=== PATIENT | female | born 1990 | race Caucasian/White ===

== ENCOUNTER → 2019-05-28 | Outpatient (REF) | payer OTHER ==
[2019-05-28 17:58] LABS: APPEARANCE, URINE CLEAR (CLEAR); BACTERIA, URINE AUTO NEGATIVE (NEGATIVE); BILIRUBIN, URINE AUTO NEGATIVE (NEGATIVE); BLOOD, URINE BLOOD NEGATIVE (NEGATIVE); COLOR, URINE YELLOW (YELLOW); GLUCOSE, URINE (UA) AUTO NEGATIVE (NEGATIVE); KETONE, URINE AUTO NEGATIVE (NEGATIVE); LEUKOCYTE ESTERASE, URINE AUTO NEGATIVE (NEGATIVE); NITRITE, URINE AUTO NEGATIVE (NEGATIVE); PROTEIN, URINE AUTO NEGATIVE (NEGATIVE); RBC, URINE AUTO 3 /HPF (0-3); SPECIFIC GRAVITY URINE AUTO 1.013 (1.002-1.035); SQUAMOUS EPITHELIAL CELL UR AU 0 /HPF (0-6); UROBILINOGEN, URINE AUTO 0.2 mg/dL (0.0-2.0); WBC, URINE AUTO 2 /HPF (0-3)
[2019-05-28 19:28] LABS: CHLAMYDIA DNA AMPLIFICATION NEGATIVE (NEGATIVE); GC DNA AMPLIFICATION NEGATIVE (NEGATIVE)
== END ==
LOC: M LAB REF 05-25 15:32
PROVIDERS: ATTEND Physician Assistant Medical
DX: Z11.3 Encounter for screening for infections with a predominantly sexual mode of transmission (principal); Z20.9 Contact with and (suspected) exposure to unspecified communicable disease

== ENCOUNTER 2019-07-28 02:02 | Emergency (ER) | payer OTHER ==
[~2019-07-28] VITALS: Ht 157.5 cm; Wt 57.7 kg
[2019-07-28 02:34] VITALS: BP 114/72
[2019-07-28] MEDS ORDERED: ATOR1TAB21 PO (02:38)
[2019-07-28] MEDS ORDERED: ABIL20TA5 PO (02:38)
[2019-07-28] MEDS ORDERED: SUBO8MIS SL (02:38)
[2019-07-28] MEDS ORDERED: ZOLO100T PO (02:38)
[2019-07-28] MEDS ORDERED: XANA2TAB2 PO (02:39)
[2019-07-28] MEDS ORDERED: LISI-538 PO (02:39)
== END 2019-07-28 03:20 | disposition home or self-care (01) ==
LOC: M ED 02:02
DX: F43.0 Acute stress reaction (principal); I10 Essential (primary) hypertension; F31.9 Bipolar disorder, unspecified; F17.200 Nicotine dependence, unspecified, uncomplicated; Z79.899 Other long term (current) drug therapy

== ENCOUNTER 2020-01-07 10:33 | Emergency (ER) | payer MEDICAID, OTHER ==
[~2020-01-07] VITALS: Ht 157.5 cm; Wt 60.2 kg
[2020-01-07 10:33] VITALS: BP 135/86
[~2020-01-07 10:33] MED LIST: ABIL20TA5 PO; ATOR1TAB21 PO; LISI-538 PO; SUBO8MIS SL; XANA2TAB2 PO; ZOLO100T PO
[2020-01-07 12:20] LABS: HEMATOCRIT 40.8 % (36.0-47.0); HEMOGLOBIN 13.6 g/dl (12.0-15.5); MEAN CORPUSCULAR HEMOGLOBIN 29.7 pg (27.0-33.0); MEAN CORPUSCULAR HGB CONC 33.3 g/dl (32.0-36.5); MEAN CORPUSCULAR VOLUME 89.1 fl (80.0-96.0); PLATELET COUNT, AUTOMATED 306 10^3/uL (150-450); RED BLOOD COUNT 4.58 10^6/uL (4.00-5.40); WHITE BLOOD COUNT 9.7 10^3/uL (4.0-10.0)
[2020-01-07] MEDS ORDERED: ALPRAZolam 0.5 MG TAB PO ONE (12:30)
[2020-01-07 12:42] LABS: HCG, SERUM QUALITATIVE NEGATIVE (NEGATIVE)
[2020-01-07 12:54] LABS: AMPHETAMINES LEVEL URINE NEGATIVE (NEGATIVE); BARBITURATES URINE NEGATIVE (NEGATIVE); BENZODIAZEPINES URINE NEGATIVE (NEGATIVE); CANNABINOIDS URINE NEGATIVE (NEGATIVE); COCAINE METABOLITE URINE NEGATIVE (NEGATIVE); METHADONE URINE NEGATIVE (NEGATIVE); OPIATES URINE NEGATIVE (NEGATIVE); PHENCYCLIDINE URINE NEGATIVE (NEGATIVE)
[2020-01-07 12:55] LABS: ACETAMINOPHEN LEVEL < 2.0 UG/ML (10.0-30.0); ALBUMIN 4.1 GM/DL (3.2-5.2); ALT/SGPT 17 U/L (12-78); BILIRUBIN,DIRECT 0.1 MG/DL (0.0-0.2); BILIRUBIN,TOTAL 0.2 MG/DL (0.2-1.0); BLOOD UREA NITROGEN 6 MG/DL (7-18); CARBON DIOXIDE LEVEL 25 MEQ/L (21-32); CHLORIDE LEVEL 107 MEQ/L (98-107); CREATININE FOR GFR 0.72 MG/DL (0.55-1.30); ETHYL ALCOHOL (ETHANOL) 0.004 % (0.000-0.010); GLOMERULAR FILTRATION RATE > 60.0 (>60); GLUCOSE, FASTING 95 MG/DL (70-100); POTASSIUM SERUM 4.4 MEQ/L (3.5-5.1); SALICYLATE LEVEL 3.9 MG/DL (5.0-30.0); SODIUM LEVEL 140 MEQ/L (136-145); THYROID STIMULATING HORMONE 0.296 uIU/ML (0.358-3.740); TOTAL PROTEIN 7.9 GM/DL (6.4-8.2)
== END 2020-01-07 13:35 | disposition left against medical advice (07) ==
LOC: M ED 10:33
DX: F32.9 Major depressive disorder, single episode, unspecified (principal); Z53.21 Procedure and treatment not carried out due to patient leaving prior to being seen by health care provider; F41.9 Anxiety disorder, unspecified; I10 Essential (primary) hypertension; F17.200 Nicotine dependence, unspecified, uncomplicated; Z79.899 Other long term (current) drug therapy
CPT/HCPCS: 36415; 80048; 80076; 80307; 84443; 84703; 85027; 99284; G0480

== ENCOUNTER 2020-10-23 12:16 | Emergency (ER) | payer MEDICAID, OTHER ==
[~2020-10-23] VITALS: Ht 157.5 cm; Wt 52.3 kg
[~2020-10-23 12:16] MED LIST changes: -LISI-538 PO; +LISI20TA33 PO
[2020-10-23] MEDS ORDERED: OLANZapine ORAL DISINTEGRATING TAB 5MG PO ONE (13:10)
[2020-10-23] MEDS ORDERED: LORazepam 2 MG TAB PO ONE (13:10)
[2020-10-23 14:06] LABS: HEMATOCRIT 45.3 % (36.0-47.0); HEMOGLOBIN 15.8 g/dl (12.0-15.5); MEAN CORPUSCULAR HEMOGLOBIN 29.8 pg (27.0-33.0); MEAN CORPUSCULAR HGB CONC 34.9 g/dl (32.0-36.5); MEAN CORPUSCULAR VOLUME 85.3 fl (80.0-96.0); PLATELET COUNT, AUTOMATED 302 10^3/uL (150-450); RED BLOOD COUNT 5.31 10^6/uL (4.00-5.40); WHITE BLOOD COUNT 10.5 10^3/uL (4.0-10.0)
[2020-10-23 14:33] LABS: HCG, SERUM QUALITATIVE NEGATIVE (NEGATIVE)
[2020-10-23 14:38] LABS: ACETAMINOPHEN LEVEL < 2.0 UG/ML (10.0-30.0); ALT/SGPT 39 U/L (12-78); BILIRUBIN,DIRECT 0.1 MG/DL (0.0-0.2); BILIRUBIN,TOTAL 0.5 MG/DL (0.2-1.0); BLOOD UREA NITROGEN 12 MG/DL (7-18); CALCIUM LEVEL 9.7 MG/DL (8.5-10.1); CARBON DIOXIDE LEVEL 23 MEQ/L (21-32); CHLORIDE LEVEL 104 MEQ/L (98-107); CK-MB VALUE MASS 1.2 NG/ML (<3.6); CPK CREATINE PHOSPHOKINASE 76 U/L (26-192); CREATININE FOR GFR 0.79 MG/DL (0.55-1.30); ETHYL ALCOHOL (ETHANOL) < 0.003 % (0.000-0.010); GLOMERULAR FILTRATION RATE > 60.0 (>60); GLUCOSE, FASTING 104 MG/DL (70-100); MB/CK RELATIVE INDEX 1.58 (< OR =4); POTASSIUM SERUM 4.4 MEQ/L (3.5-5.1); SALICYLATE LEVEL 3.3 MG/DL (5.0-30.0); SODIUM LEVEL 135 MEQ/L (136-145); THYROID STIMULATING HORMONE 0.569 uIU/ML (0.358-3.740); TOTAL PROTEIN 8.5 GM/DL (6.4-8.2); TROPONIN I < 0.02 NG/ML (< 0.10)
[2020-10-23 15:30] VITALS: BP 163/109
--- NOTE | 2020-10-23 20:17 | ECGEPIP ---
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
== END 2020-10-23 17:08 | disposition left against medical advice (07) ==
LOC: M ED 12:16 → EDBD 12:16 → M ED 17:08
DX: R44.3 Hallucinations, unspecified (principal); Z53.9 Procedure and treatment not carried out, unspecified reason; R00.0 Tachycardia, unspecified; I10 Essential (primary) hypertension; E78.5 Hyperlipidemia, unspecified; F32.9 Major depressive disorder, single episode, unspecified; F41.9 Anxiety disorder, unspecified; F17.200 Nicotine dependence, unspecified, uncomplicated; Z79.899 Other long term (current) drug therapy

== ENCOUNTER 2020-11-22 09:36 | Inpatient (IN) | payer MEDICAID, OTHER ==
[~2020-11-22] VITALS: Ht 157.5 cm; Wt 55.0 kg
[2020-11-22] MEDS ORDERED: BOOSTRIX/ADACEL VACCINE (DIPHTH/PERTUSS/ACELL/TETANUS) 0.5ML SYR IM ONE (09:55)
[2020-11-22 10:35] LABS: HEMATOCRIT 35.4 % (36.0-47.0); HEMOGLOBIN 12.4 g/dl (12.0-15.5); MEAN CORPUSCULAR HEMOGLOBIN 29.6 pg (27.0-33.0); MEAN CORPUSCULAR VOLUME 84.5 fl (80.0-96.0); PLATELET COUNT, AUTOMATED 249 10^3/uL (150-450); RED BLOOD COUNT 4.19 10^6/uL (4.00-5.40); WHITE BLOOD COUNT 10.2 10^3/uL (4.0-10.0)
[2020-11-22 10:57] LABS: AMPHETAMINES LEVEL URINE POSITIVE (NEGATIVE); BARBITURATES URINE NEGATIVE (NEGATIVE); BENZODIAZEPINES URINE POSITIVE (NEGATIVE); CANNABINOIDS URINE NEGATIVE (NEGATIVE); COCAINE METABOLITE URINE NEGATIVE (NEGATIVE); METHADONE URINE NEGATIVE (NEGATIVE); OPIATES URINE POSITIVE (NEGATIVE); PHENCYCLIDINE URINE NEGATIVE (NEGATIVE)
[2020-11-22 11:03] LABS: HCG, SERUM QUALITATIVE NEGATIVE (NEGATIVE)
[2020-11-22 11:13] LABS: ACETAMINOPHEN LEVEL < 2.0 UG/ML (10.0-30.0); ALBUMIN 3.5 GM/DL (3.2-5.2); ALT/SGPT 21 U/L (12-78); BILIRUBIN,DIRECT < 0.1 MG/DL (0.0-0.2); BILIRUBIN,TOTAL 0.3 MG/DL (0.2-1.0); BLOOD UREA NITROGEN 11 MG/DL (7-18); CALCIUM LEVEL 8.8 MG/DL (8.5-10.1); CARBON DIOXIDE LEVEL 26 MEQ/L (21-32); CHLORIDE LEVEL 105 MEQ/L (98-107); CREATININE FOR GFR 0.78 MG/DL (0.55-1.30); ETHYL ALCOHOL (ETHANOL) < 0.003 % (0.000-0.010); GLOMERULAR FILTRATION RATE > 60.0 (>60); GLUCOSE, FASTING 87 MG/DL (70-100); POTASSIUM SERUM 3.3 MEQ/L (3.5-5.1); SALICYLATE LEVEL 2.4 MG/DL (5.0-30.0); SODIUM LEVEL 138 MEQ/L (136-145); TOTAL PROTEIN 7.1 GM/DL (6.4-8.2)
[2020-11-22 12:02] LABS: RSV AMPLIFICATION NEGATIVE (NEGATIVE)
[2020-11-22] MEDS ORDERED: SERT50TA29 PO (12:09)
[2020-11-22] MEDS ORDERED: MOM 30ML SUSPENSION UDC PO PRN (13:15)
[2020-11-22] MEDS ORDERED: ACETAMINOPHEN TAB 650MG DOSE (2X325MG) PO PRN (13:15)
[2020-11-22] MEDS ORDERED: MAALOX 30 ML SUSP *UDC PO PRN (13:15)
[2020-11-22] MEDS ORDERED: ALPR2TAB3 PO (14:14)
[2020-11-22] MEDS ORDERED: cloNIDine 0.1MG TABLET PO ONE (14:40)
[2020-11-22 17:45] VITALS: BP 134/81
[2020-11-22] MEDS: ALPRAZolam 0.5 MG TAB PO PRN (20:33)
[2020-11-22] MEDS: SERTRALINE HCL 50 MG TAB PO SCH (20:46)
[2020-11-22] MEDS: NICOTINE 21MG/24HR 1 EA TRANSDERMAL TD SCH (20:46)
[2020-11-22] MEDS: ATORVASTATIN 20 MG TAB PO SCH (20:46)
[2020-11-22] MEDS: ARIPiprazole 10 MG TAB PO SCH (20:46)
[2020-11-23 06:09] VITALS: BP 92/55
[2020-11-23] MEDS ORDERED: SERTRALINE 100 MG TAB PO SCH (09:00)
[2020-11-23] MEDS: cloNIDine 0.1MG TABLET PO SCH ×2 (09:00→20:43)
[2020-11-23] MEDS: SERTRALINE HCL 50 MG TAB PO SCH (09:40)
[2020-11-23] MEDS: ATORVASTATIN 20 MG TAB PO SCH (09:40)
[2020-11-23] MEDS: ARIPiprazole 10 MG TAB PO SCH (09:40)
[2020-11-23] MEDS: NICOTINE 21MG/24HR 1 EA TRANSDERMAL TD SCH (09:41)
[2020-11-23] MEDS: ALPRAZolam 0.5 MG TAB PO PRN ×2 (09:42→20:41)
[2020-11-23] MEDS ORDERED: POTASSIUM CHLORIDE 10 MEQ SR TABLET PO ONE (12:05)
--- NOTE | 2020-11-23 12:10 | HPEPDOC ---
[facility] Medical History & Physical Date of Admission Nov 22, 2020 Date of Service: Nov 23, 2020 History and Physical Chief complaint: Who presented to the emergency room with suicidal ideation History of present illness: Patient is a 30-year-old female with a past medical history of hypertension, dyslipidemia and bipolar disorder who presented to the emergency room with suicidal ideation and was reporting that drugs or taking over her life. Patient was admitted to the inpatient mental health unit under the care of psychiatry. Hospitalist service was consulted for medical screening evaluation. Patient was seen and examined in her room with her nurse. Patient reports some nausea without any headache, vomiting, chest pain, shortness of breath, palpitations, cough, abdominal pain, constipation or diarrhea. Denies any recent fevers but did report some chills. Reports that her weight and appetite have been fairly normal. Past Medical History: HTN DLP Bipolar Past Surgical History: Left thigh abscess incision and drainage Allergies: See below Medications: See below Family History: - No history of malignancies Social History: - Denies the use of alcohol; patient reports that she is a smoker of 20 years; reports use of heroine regularly. Last use was yesterday (reports the use of a bundle a day) - Denies recent travel or sick contacts Review of Systems: 10 point review of systems complete, all negative otherwise stated in HPI Physical exam: - Vitals: BP [92/55], HR [84], RR [16], Sat [99%RA], Temp [98.6F] - General: Lying in bed, No acute distress, Speaking in full sentences, AAOx3 - HEENT: NC, AT, PERRLA - CVS: RRR, +S1S2 - Lungs: Fair air entry bilaterally, No appreciable wheezing / rales / rhonchi - Abdomen: Soft, Non-distended, Non-tender - Extremities: No lower extremity edema, No calf tenderness - Neuro: No focal motor or sensory deficit - Skin: No visible rashes Labs: See below Imaging: See below EKG: See below Assessment and Plan: Suicidal ideation - Patient is a history of bipolar disorder - She has been admitted to the inpatient mental health unit under the care of psychiatry - Currently being managed by psychiatry Substance abuse - Patient reports regular use of heroin - Will need to be monitored for symptoms of withdrawal Leukocytosis - No evidence of infection on ROS - Hemodynamically stable and afebrile - Will hold off on antibiotics at this time Hypokalemia - Will supplement HTN - Blood pressure appears to be well-controlled/lower limits of normal - Will place hold parameters on Lisinopril DLP - c/w Atorvastatin DVT prophylaxis - Will continue with early ambulation Female supplier relationship director was present for the duration of his history and physical examination Thank you for this consultation; hospitalist service will now sign off, please reconsult as needed Vital Signs Vital Signs Date Time Temp Pulse Resp B/P (MAP) Pulse Ox O2 Delivery O2 Flow Rate FiO2 11/23/20 09:40 92/55 11/23/20 06:09 98.6 84 16 99 Room Air Home Medications Scheduled Aripiprazole (Abilify) 20 Mg Tablet, 20 MG PO DAILY Atorvastatin Calcium (Atorvastatin Calcium) 20 Mg Tablet, 20 MG PO DAILY LAST FILLED 09/06/20 Lisinopril (Lisinopril) 20 Mg Tablet, 20 MG PO DAILY Sertraline HCl (Sertraline HCl) 50 Mg Tablet, 50 MG PO DAILY TAKE WITH 100MG TAB. 150MG DAILY Sertraline Hcl (Zoloft) 100 Mg Tablet, 100 MG PO DAILY TAKE WITH 50 MG TABS. 150MG DAILY Scheduled PRN Alprazolam (Alprazolam) 2 Mg Tablet, 2 MG PO BID PRN for ANXIETY Allergies Coded Allergies: No Known Allergies (Unverified , 07/28/19) LAURA BRISENO MD Nov 23, 2020 12:10
[2020-11-23] MEDS ORDERED: diphenhydrAMINE 50MG/ML VIAL (J1200) IM STA (12:39)
[2020-11-23] MEDS ORDERED: HALOPERIDOL 5MG/ML VIAL (J1630 PER 1) IM STA (12:39)
[2020-11-23] MEDS ORDERED: LORazepam 2 MG/ML VIAL IM STA (12:39)
--- NOTE | 2020-11-23 13:05 | MHHPEPDOC ---
General Date Of Admission: Nov 22, 2020 Legal Status: 9.39 Chief Complaint " I'm not going to hurt myself,my house is unlocked, I am going to lose everything if I stay in here, i need to see my kid" History of Present Illness HISTORY OF THE PRESENT ILLNESS: Patient is a 30 -year-old , unemployed, female, who was brought in be [facility] police after making suicidal statement to her mother . Per ED notes, patient contacted her mother via video chat & told her to tell her daughter, 'lion and that she'd see her in [facility]'. She also has a single superficial laceration to her right, anterior distal forearm, which police report was inflicted during that same video call.Police additionally advised that patient admitted to using IV heroin a couple of hours prior to their arr ival & requested to be allowed to enter her bathroom to "shoot up" again before transport here. ED reports indicate patient said: "Shop Director dragged me in jacquelyn think I'm suicidal or something." . She now denies SI and demanding to go home. She is irritable, trembling, hostile and lashing out. . Patient was positive for benzodiazepines( is prescribed), amphetamine, and opiates. Psychiatric Review of Systems Depression (2 or more weeks): insomnia/hypersomnia, denies (denies SI, but per records she made a suicidal statement to her mother, who called the police) Marisol (4 or more days of): irritable/elevated mood Psychosis: denies PTSD: denies Anxiety: denies, other (patient denies being amxious but appears anxious) Anxiety/ 6 months or more of: irritability Past Psychiatric History Previous Psychiatric Diagnosis: Depression, Opiate use disorder, Previous Psychiatric Admissions: Denies Suicide Attempts: Denies. Psychiatric Follow-up: [facility] . Psychiatric medications: Alprazolam 2mg PO BID PRN, Abilify 20mg po daily, Zoloft 100mg daily, Sertraline HCL 50mg daily Past Medical History Head Injury: No Seizures: No Hospitalizations: No Surgeries: No Family Medical/Psychiatric HX Psychiatric Disorders: No Addiction: No Suicide Attemps/Completions: No Addiction History amphetamines, heroin Social History Childhood: with sarcasm says childhood was " Wonderful".She says she grew up with her mother. Abuse/Trauma:Denies. Current Living Situation: Lives alone in an apartment . Education: High school Employment: Unemployed. Social Support: Her grandmother. Per patient, her mother is in [place] and patient's 4 year old daughter lives with patient's grandmother. Legal: Denies Marital: Single. Mental Status Examination General Appearance: unkempt, disheveled, appears stated age, hospital scubs/clothing, lacerations Build: thin Demeanor: hostile Eye Contact: average Activity: agitated, anxious Behavior: resistant, impulsive, aggressive, restless Speech: clear, rapid Mood: anxious, angry, irritable Affect: constricted Thought Process: blocked Thought Content (Delusions): denies SI, HI, AVH, paranoia Thought Content (Other): none reported, appears paranoid Thought Content (Aggressive): aggressive (assess) Perception (Hallucinations): none reported Perception (Other): none reported Cognition (Impairment of): none reported Cognition(Intelligence Est.): average Oriented: Awake, Alert, Oriented times three Insight: poor Judgment: Poor Psychosis: Denies Diagnoses Unspecified Depressive disorder, R/O Opiate induced Depressive Disorder Amphetamine use disorder Opiate use disorder HTN A-FIB/CHADSVASC A-FIB History Current/History of A-Fib/PAF?: No Current PO Anticoag Therapy: No Assessment Patient is seen this afternoon. She is anxious, irritable impulsive. She is trembling saying she is probably going through heroine withdraw. Says she last used heroin yesterday. Says she wants to go home " I'm not going to hurt myself,my house is unlocked, I am going to lose everything if I stay in here, i need to see my kid". Says she is going through heroine withdrawal. She is labile, loud angry asking over over and why she can't go home. She has visible cuts on her wrists. Says the cuts are from a light fixture and they were accidental.She ends the interview yelling out and continues to yell in the hallway heading to her room. Will prescribe home medications including medications to alleviate withdrawal symptoms. Initial Treatment Plan 1. Patient was admitted on a [9.39] status. 2. Complete history was obtained. 3. With patients permission, family will be contacted and database will be expanded. 4. Patients medication regimen will be reviewed and changed accordingly. 5. Patient will be provided with protected environment. 6. Patient will be treated with individual, group, and milieu therapies. 7. Patient will receive supportive psych-education. 8. Discharge planning will commence immediately. 9. Outpatient follow-up treatment will be strongly recommended. 10. The initial treatment plan will focus initially on: * Depression * Heroine use disorder * Heroine withdrawal * Risk for suicide. ESTIMATED LENGTH OF STAY: 3-7 DAYS. TIME SPENT COUNSELING AND COORDINATING INITIAL CARE: 60 minutes. Ordered/Pending Vital Signs Vital Signs Date Time Temp Pulse Resp B/P (MAP) Pulse Ox O2 Delivery O2 Flow Rate FiO2 11/23/20 09:40 92/55 11/23/20 06:09 98.6 84 16 99 Room Air Medications Scheduled Aripiprazole (Abilify) 20 Mg Tablet, 20 MG PO DAILY, (Reported) Atorvastatin Calcium (Atorvastatin Calcium) 20 Mg Tablet, 20 MG PO DAILY, (Reported) LAST FILLED 09/06/20 Lisinopril (Lisinopril) 20 Mg Tablet, 20 MG PO DAILY, (Reported) Sertraline HCl (Sertraline HCl) 50 Mg Tablet, 50 MG PO DAILY, (Reported) TAKE WITH 100MG TAB. 150MG DAILY Sertraline Hcl (Zoloft) 100 Mg Tablet, 100 MG PO DAILY, (Reported) TAKE WITH 50 MG TABS. 150MG DAILY Scheduled PRN Alprazolam (Alprazolam) 2 Mg Tablet, 2 MG PO BID PRN for ANXIETY, (Reported) Allergies Coded Allergies: No Known Allergies (Unverified , 07/28/19) LEONARDA BLAND NP Nov 23, 2020 13:05
[2020-11-23] MEDS ORDERED: BACLOFEN 5MG PER 1/2 TABLET PO PRN (13:20)
[2020-11-23] MEDS ORDERED: IBUPROFEN 600MG TAB PO PRN (13:20)
[2020-11-23] MEDS ORDERED: diazePAM 5MG TABLET PO PRN (13:20)
[2020-11-23] MEDS ORDERED: ONDANSETRON 4 MG TAB PO PRN (13:20)
[2020-11-23] MEDS ORDERED: LOPERAMIDE 2 MG CAPLET PO PRN (13:20)
[2020-11-23] MEDS ORDERED: ALPRAZolam 0.5 MG TAB PO PRN (18:00)
[2020-11-23] MEDS: OLANZapine ORAL DISINTEGRATING TAB 5MG PO PRN (20:47)
[2020-11-23 20:49] VITALS: BP 139/95
[2020-11-24 06:48] VITALS: BP 137/66
[2020-11-24] MEDS: ATORVASTATIN 20 MG TAB PO SCH (10:04)
[2020-11-24] MEDS: ARIPiprazole 10 MG TAB PO SCH (10:05)
[2020-11-24] MEDS: cloNIDine 0.1MG TABLET PO SCH ×2 (10:05→20:24)
[2020-11-24] MEDS: ALPRAZolam 0.5 MG TAB PO PRN ×2 (10:05→20:23)
[2020-11-24] MEDS: SERTRALINE HCL 50 MG TAB PO SCH (10:05)
[2020-11-24] MEDS: NICOTINE 21MG/24HR 1 EA TRANSDERMAL TD SCH (10:06)
[2020-11-24] MEDS: OLANZapine ORAL DISINTEGRATING TAB 5MG PO PRN (14:50)
[2020-11-24] MEDS: cloNIDine 0.2 MG TAB PO PRN (16:45)
[2020-11-24] MEDS ORDERED: cloNIDine 0.2 MG TAB PO SCH (17:00)
[2020-11-24 18:00] VITALS: BP 121/72
[2020-11-24] MEDS: traZODone 50 MG TAB PO PRN (20:46)
[2020-11-25] MEDS: cloNIDine 0.2 MG TAB PO PRN ×2 (05:54→12:30)
[2020-11-25] MEDS: ALPRAZolam 0.5 MG TAB PO PRN ×3 (05:54→22:38)
[2020-11-25 07:15] VITALS: BP 158/95
[2020-11-25] MEDS: ARIPiprazole 10 MG TAB PO SCH (09:39)
[2020-11-25] MEDS: SERTRALINE HCL 50 MG TAB PO SCH (09:39)
[2020-11-25] MEDS: ATORVASTATIN 20 MG TAB PO SCH (09:39)
[2020-11-25] MEDS: cloNIDine 0.1MG TABLET PO SCH ×2 (09:39→20:00)
[2020-11-25] MEDS: NICOTINE 21MG/24HR 1 EA TRANSDERMAL TD SCH (09:40)
[2020-11-25] MEDS: OLANZapine ORAL DISINTEGRATING TAB 5MG PO PRN ×2 (12:30→20:00)
--- NOTE | 2020-11-25 17:35 | MHIPN ---
[facility] PROGRESS NOTE DATE: 11/25/2020 SUBJECTIVE: The patient was having a lot of withdrawal symptoms yesterday, so I increased the dose of her clonidine and she is feeling better today. She has no complaints. MENTAL STATUS EXAMINATION: She is alert and oriented times three. Eye contact is fair. Psychomotor activity is normal. There is no formal thought disorder noted. She says her mood is okay. Affect constricted but appropriate. She is not psychotic, suicidal or homicidal. Concentration is fair. Memory intact. Insight and judgment is good. DIAGNOSES: 1. Unspecified depressive disorder. 2. Rule out opioid induced depressive disorder. 3. Amphetamine use disorder. 4. Opioid use disorder. TREATMENT PLAN: At this point, we will continue to monitor the patient for any withdrawal symptoms and for continued stabilization of her mood and we will titrate her medications as indicated.
[2020-11-25 18:25] VITALS: BP 141/82
[2020-11-25] MEDS: traZODone 50 MG TAB PO PRN (20:00)
[2020-11-26] MEDS: ARIPiprazole 10 MG TAB PO SCH (08:11)
[2020-11-26] MEDS: ATORVASTATIN 20 MG TAB PO SCH (08:11)
[2020-11-26] MEDS: SERTRALINE HCL 50 MG TAB PO SCH (08:11)
[2020-11-26 08:12] VITALS: BP 148/89
[2020-11-26] MEDS: NICOTINE 21MG/24HR 1 EA TRANSDERMAL TD SCH (08:12)
[2020-11-26] MEDS: cloNIDine 0.1MG TABLET PO SCH (08:12)
[2020-11-26] MEDS ORDERED: ALPR0.5T3 PO (09:53)
[2020-11-26] MEDS ORDERED: ABIL20TA5 PO (09:53)
[2020-11-26] MEDS ORDERED: SERT50TA29 PO (09:53)
[2020-11-26] MEDS ORDERED: ATOR1TAB21 PO (09:53)
[2020-11-26] MEDS ORDERED: LISI20TA33 PO (09:53)
[2020-11-26] MEDS ORDERED: ZOLO100T PO (09:53)
[2020-11-26 10:13] VITALS: BP 148/89
--- NOTE | 2020-11-26 10:25 | MHIPN ---
[facility] PSYCHIATRIC PROGRESS NOTE DATE OF SERVICE: 11/24/2020 HISTORY OF PRESENT ILLNESS: The patient refused to see me and so I am not able to complete this evaluation.
--- NOTE | 2020-11-26 16:58 | MHDSPDOC ---
[facility] Discharge Summary Discharge Summary DATE OF ADMISSION: Nov 22, 2020 at 13:13 DATE OF DISCHARGE: 11/26/20 at 1025 DISCHARGE DIAGNOSES: Unspecified Depressive disorder, R/O Opiate induced Depressive Disorder Amphetamine use disorder Opiate use disorder HTN REASON FOR ADMISSION: Patient is a 30 -year-old , unemployed, female, who was brought in by [facility] police after making suicidal statement to her mother . Per ED notes, patient contacted her mother via video chat & told her to tell her daughter, 'lion and that she'd see her in [facility]'. She also has a single superficial laceration to her right, anterior distal forearm, which police report was inflicted during that same video call. Police additionally advised that patient admitted to using IV heroin a couple of hours prior to their arrival & requested to be allowed to enter her bathroom to "shoot up" again before transport here. ED reports indicate patient said: "Wine Steward/Stewardess dragged me in jacquelyn think I'm suicidal or something." She now denies SI and demanding to go home. She is irritable, trembling, hostile and lashing out. . Patient was positive for benzodiazepines( is prescribed), amphetamine, and opiates. CONSULTANTS INVOLVED: See Medical H + P by Hospitalist TREATMENT AND PROGRESS ON THE UNIT: Patient was admitted to the [facility] on a 9.39 legal status he was afforded the following treatment modalities: 1) Individual Therapy 2) Group Therapy 3) Medication Management 4) Milieu Therapy 5) Safe Environment HOSPITAL COURSE: Patient admitted to [facility] on a 9.39 legal status. She was started on her home medications. At her initial psychiatric interview, patient demanded to be discharged stating "I am an addict what can you do for me?" Patient reported that she was going through withdrawal and she was given medications to alleviate her withdrawal symptoms. Over the weekend she was very upset reporting that her room at the [facility] was being raided and people were stealing her belongings. She reiterated this in today's meeting. She requested renewals of medications reporting that medications were "stolen" from her. She is no longer reporting suicidal ideations and denies being depressed. DISCHARGE ASSESSMENT: In today's interview, patient is alert and oriented, pts dress is appropriate. Hygiene and grooming is well-kempt. Smiles on approach and is pleasant and engaged in the interview. Denies depression and anxiety. Denies suicidal and homicidal ideation, planning or intent. Denies and is not observed with kaelyn, psychotic symptoms of delusions, bizarre thinking, obsessions, paranoia, ruminations illogical thoughts, flight of ideas or having poor insight and judgement. Patient has normal mentation, declines further hospitalization on a voluntary status and meets criteria for discharge today. Patient encouraged to return to hospital if symptoms worsen or change and encouraged to call unit if he/she/they needs to speak to provider for questions regarding medications or care. MENTAL STATUS EXAMINATION ON DISCHARGE: Patient is a 30 -year-old , unemployed, female, who was brought in by [employer] police after making suicidal statement to her mother . Speech: Is fluid, conversant, normal rate, tone and volume Language skills are intact Thought processes including: linear and goal oriented Thought content: denies depression and anxiety. Denies suicidal/homicidal ideation, planning or intent. Abstract reasoning, and computation: fair Description of associations: denies, none observed Description of abnormal or psychotic thoughts: denies, none observed. Judgment: fair Insight: fair Orientation: alert and oriented to person, place, time and situation Recent and remote memory: intact Attention span and concentration: good Language: expansive Fund of knowledge: average Mood: Euthymic Mood Affect: reactive MEDICATIONS ON DISCHARGE: See Medication Reconciliation PLAN/FOLLOWUP ARRANGEMENTS: Patient is following up with [facility] The amount of time spent in the coordination of care for this patient was approximately 25 minutes. ETOH/Disorder Med Rx ETOH/DRUG DISORDER RX: Offrd @ d/c & pt refused Vital Signs/I&Os Vital Signs Date Time Temp Pulse Resp B/P (MAP) Pulse Ox O2 Delivery O2 Flow Rate FiO2 11/26/20 10:13 98.5 87 16 148/89 (108) 100 11/25/20 18:25 Room Air Medications Scheduled Aripiprazole (Abilify) 20 Mg Tablet, 20 MG PO DAILY for Antipsychotic, #7 Atorvastatin Calcium (Atorvastatin Calcium) 20 Mg Tablet, 20 MG PO DAILY for Cholesterol, #7 LAST FILLED 09/06/20 Lisinopril (Lisinopril) 20 Mg Tablet, 20 MG PO DAILY for Blood Pressure, #7 Sertraline HCl (Sertraline HCl) 50 Mg Tablet, 50 MG PO DAILY for Depression, #7 TAKE WITH 100MG TAB. 150MG DAILY Sertraline Hcl (Zoloft) 100 Mg Tablet, 100 MG PO DAILY for Depression, #7 TAKE WITH 50 MG TABS. 150MG DAILY Scheduled PRN Alprazolam (Alprazolam) 0.5 Mg Tablet, 0.5 MG PO TIDP PRN for ANXIETY, #21 Allergies Coded Allergies: No Known Allergies (Unverified , 07/28/19) LEONARDA BLAND NP Nov 26, 2020 10:29
== END 2020-11-26 11:59 | disposition home or self-care (01) | DRG 754 ==
LOC: M ED 09:36 → M ED INP 13:13 → M PSY 17:15
PROVIDERS: ADMIT Psychiatry & Neurology Psychiatry; ATTEND Psychiatry & Neurology Psychiatry
DX: F32.9 Major depressive disorder, single episode, unspecified (principal); I10 Essential (primary) hypertension; R45.851 Suicidal ideations; F11.14 Opioid abuse with opioid-induced mood disorder; F15.10 Other stimulant abuse, uncomplicated; E78.5 Hyperlipidemia, unspecified; D72.829 Elevated white blood cell count, unspecified; E87.6 Hypokalemia; Z20.822 Contact with and (suspected) exposure to COVID-19

== ENCOUNTER → 2021-04-22 | Outpatient (CLI) | payer MEDICAID ==
[~2021-04-22] MED LIST changes: +ALPR0.5T3 PO; +ALPR2TAB3 PO; +SERT50TA29 PO
== END ==
LOC: M OUTALCOH 07:28
PROVIDERS: ATTEND Psychiatry & Neurology Psychiatry
DX: Z13.39 Encounter for screening examination for other mental health and behavioral disorders (principal); F11.20 Opioid dependence, uncomplicated; F14.20 Cocaine dependence, uncomplicated; F15.20 Other stimulant dependence, uncomplicated

== ENCOUNTER → 2021-05-22 | Outpatient (CLI) | payer MEDICAID | LOC: M OUTALCOH 07:39 | PROVIDERS: ATTEND Psychiatry & Neurology Psychiatry | DX: Z13.39 Encounter for screening examination for other mental health and behavioral disorders (principal); F11.20 Opioid dependence, uncomplicated ==

== ENCOUNTER 2021-12-16 19:15 | Inpatient (IN) | payer MEDICAID ==
[~2021-12-16] VITALS: Ht 157.5 cm; Wt 60.0 kg
[2021-12-16 22:26] LABS: HEMATOCRIT 36.5 % (36.0-47.0); HEMOGLOBIN 12.7 g/dl (12.0-15.5); MEAN CORPUSCULAR HEMOGLOBIN 30.2 pg (27.0-33.0); MEAN CORPUSCULAR HGB CONC 34.8 g/dl (32.0-36.5); MEAN CORPUSCULAR VOLUME 86.9 fl (80.0-96.0); PLATELET COUNT, AUTOMATED 224 10^3/uL (150-450)
[2021-12-16 22:58] LABS: ACETAMINOPHEN LEVEL < 2.0 UG/ML (10.0-30.0); ALBUMIN 3.3 GM/DL (3.2-5.2); ALT/SGPT 14 U/L (12-78); BILIRUBIN,DIRECT < 0.1 MG/DL (0.0-0.2); BILIRUBIN,TOTAL 0.2 MG/DL (0.2-1.0); BLOOD UREA NITROGEN 12 MG/DL (7-18); CALCIUM LEVEL 8.6 MG/DL (8.5-10.1); CARBON DIOXIDE LEVEL 23 MEQ/L (21-32); CHLORIDE LEVEL 109 MEQ/L (98-107); CREATININE FOR GFR 0.77 MG/DL (0.55-1.30); ETHYL ALCOHOL (ETHANOL) < 0.003 % (0.000-0.010); GLOMERULAR FILTRATION RATE > 60.0 (>60); GLUCOSE, FASTING 112 MG/DL (70-100); POTASSIUM SERUM 3.7 MEQ/L (3.5-5.1); SALICYLATE LEVEL 3.6 MG/DL (5.0-30.0); SODIUM LEVEL 140 MEQ/L (136-145); TOTAL PROTEIN 6.8 GM/DL (6.4-8.2)
[2021-12-16 23:30] LABS: HCG, SERUM QUALITATIVE NEGATIVE (NEGATIVE)
[2021-12-17 01:40] LABS: AMPHETAMINES LEVEL URINE POSITIVE (NEGATIVE); BARBITURATES URINE NEGATIVE (NEGATIVE); BENZODIAZEPINES URINE NEGATIVE (NEGATIVE); CANNABINOIDS URINE NEGATIVE (NEGATIVE); COCAINE METABOLITE URINE NEGATIVE (NEGATIVE); METHADONE URINE NEGATIVE (NEGATIVE); OPIATES URINE POSITIVE (NEGATIVE); PHENCYCLIDINE URINE NEGATIVE (NEGATIVE)
[2021-12-17 01:47] LABS: RSV AMPLIFICATION NEGATIVE (NEGATIVE)
[2021-12-17] MEDS ORDERED: HOME MED LIST COMPLETE! XX SCH (06:50)
[2021-12-17] MEDS ORDERED: MAALOX 30 ML SUSP *UDC PO PRN (14:40)
[2021-12-17] MEDS ORDERED: MOM 30ML SUSPENSION UDC PO PRN (14:40)
[2021-12-17] MEDS: NICOTINE 21MG/24HR 1 EA TRANSDERMAL TD SCH (15:40)
[2021-12-17] MEDS: OLANZapine ORAL DISINTEGRATING TAB 5MG PO PRN ×2 (15:40→21:27)
[2021-12-17] MEDS: diphenhydrAMINE 25MG CAP PO PRN ×2 (15:40→21:26)
[2021-12-17] MEDS: cloNIDine 0.1MG TABLET PO PRN (15:41)
[2021-12-17] MEDS: IBUPROFEN 400MG TAB PO PRN ×2 (15:41→21:26)
[2021-12-17] MEDS: traZODone 50 MG TAB PO PRN (21:27)
[2021-12-17 23:18] VITALS: BP 142/96
[2021-12-18] MEDS ORDERED: LORazepam 2 MG TAB PO PRN (06:25)
[2021-12-18 06:47] VITALS: BP 140/90
[2021-12-18] MEDS ORDERED: THIAMINE 100 MG TAB PO SCH (09:00)
[2021-12-18] MEDS ORDERED: FOLIC ACID 1 MG TAB PO SCH (09:00)
[2021-12-18] MEDS ORDERED: MULTIVITAMINS/MINERALS THERAP 1 TAB PO SCH (09:00)
[2021-12-18] MEDS: cloNIDine 0.1MG TABLET PO PRN (09:12)
[2021-12-18] MEDS: NICOTINE 21MG/24HR 1 EA TRANSDERMAL TD SCH (09:13)
[2021-12-18] MEDS: ATORVASTATIN 20 MG TAB PO SCH (11:09)
[2021-12-18] MEDS: OLANZapine ORAL DISINTEGRATING TAB 5MG PO PRN (13:32)
[2021-12-18] MEDS: diphenhydrAMINE 25MG CAP PO PRN (16:28)
[2021-12-18] MEDS: IBUPROFEN 400MG TAB PO PRN (16:40)
[2021-12-18] MEDS ORDERED: hydrOXYzine 50 MG TAB PO ONE (16:55)
[2021-12-18] MEDS ORDERED: cloNIDine 0.2 MG TAB PO ONE (16:55)
[2021-12-18 17:59] VITALS: BP 141/66
[2021-12-18] MEDS: hydrOXYzine 50 MG TAB PO PRN (21:53)
[2021-12-18] MEDS: traZODone 50 MG TAB PO PRN (21:53)
[2021-12-19] MEDS: OLANZapine ORAL DISINTEGRATING TAB 5MG PO PRN ×4 (07:26→21:06)
[2021-12-19] MEDS: ATORVASTATIN 20 MG TAB PO SCH (09:00)
[2021-12-19] MEDS: NICOTINE 21MG/24HR 1 EA TRANSDERMAL TD SCH ×2 (09:00→14:56)
[2021-12-19] MEDS: hydrOXYzine 50 MG TAB PO PRN ×2 (11:16→18:00)
[2021-12-19] MEDS: IBUPROFEN 400MG TAB PO PRN ×2 (11:17→18:00)
[2021-12-19] MEDS: VENLAFAXINE **XR** 37.5 MG CAPSULE PO SCH (12:33)
[2021-12-19] MEDS: cloNIDine 0.2 MG TAB PO PRN ×2 (12:33→21:06)
[2021-12-19] MEDS: traZODone 50 MG TAB PO PRN (20:07)
[2021-12-19] MEDS: diphenhydrAMINE 25MG CAP PO PRN (21:06)
[2021-12-20] MEDS: hydrOXYzine 50 MG TAB PO PRN ×3 (05:30→20:04)
[2021-12-20] MEDS: cloNIDine 0.2 MG TAB PO PRN (05:33)
[2021-12-20] MEDS: diphenhydrAMINE 25MG CAP PO PRN ×3 (05:33→22:50)
[2021-12-20 06:40] VITALS: BP 142/94
[2021-12-20] MEDS: OLANZapine ORAL DISINTEGRATING TAB 5MG PO PRN ×2 (09:03→18:18)
[2021-12-20] MEDS: VENLAFAXINE **XR** 37.5 MG CAPSULE PO SCH (09:03)
[2021-12-20] MEDS: NICOTINE 21MG/24HR 1 EA TRANSDERMAL TD SCH (09:03)
[2021-12-20] MEDS: ATORVASTATIN 20 MG TAB PO SCH (09:03)
[2021-12-20] MEDS: PROPRANOLOL 20 MG TAB PO SCH ×3 (11:08→20:05)
[2021-12-20] MEDS ORDERED: cloNIDine 0.2 MG TAB PO PRN (13:30)
[2021-12-20 18:43] VITALS: BP 142/88
[2021-12-20] MEDS: traZODone 50 MG TAB PO PRN (20:05)
[2021-12-21 06:00] VITALS: BP 136/100
[2021-12-21] MEDS: hydrOXYzine 50 MG TAB PO PRN (07:04)
[2021-12-21] MEDS: PROPRANOLOL 20 MG TAB PO SCH ×3 (08:03→20:04)
[2021-12-21] MEDS: ATORVASTATIN 20 MG TAB PO SCH (08:03)
[2021-12-21] MEDS: VENLAFAXINE **XR** 75MG CAPSULE PO SCH (08:03)
[2021-12-21] MEDS: NICOTINE 21MG/24HR 1 EA TRANSDERMAL TD SCH (08:04)
[2021-12-21 18:00] VITALS: BP 136/90
[2021-12-21] MEDS: traZODone 50 MG TAB PO PRN (20:03)
[2021-12-22] MEDS: OLANZapine ORAL DISINTEGRATING TAB 5MG PO PRN ×2 (05:19→21:04)
[2021-12-22 06:36] VITALS: BP 142/100
[2021-12-22] MEDS: VENLAFAXINE **XR** 75MG CAPSULE PO SCH (09:38)
[2021-12-22] MEDS: ATORVASTATIN 20 MG TAB PO SCH (09:38)
[2021-12-22] MEDS: PROPRANOLOL 20 MG TAB PO SCH ×3 (09:38→20:47)
[2021-12-22] MEDS: NICOTINE 21MG/24HR 1 EA TRANSDERMAL TD SCH (09:39)
[2021-12-22 18:00] VITALS: BP 134/109
[2021-12-22] MEDS: hydrOXYzine 50 MG TAB PO PRN (20:45)
[2021-12-22] MEDS: diphenhydrAMINE 25MG CAP PO PRN (20:47)
[2021-12-23 06:00] VITALS: BP 158/104
[2021-12-23] MEDS: VENLAFAXINE **XR** 75MG CAPSULE PO SCH (08:04)
[2021-12-23] MEDS: PROPRANOLOL 20 MG TAB PO SCH ×3 (08:07→20:33)
[2021-12-23] MEDS: ATORVASTATIN 20 MG TAB PO SCH (08:08)
[2021-12-23] MEDS: NICOTINE 21MG/24HR 1 EA TRANSDERMAL TD SCH (08:08)
[2021-12-23] MEDS: OLANZapine ORAL DISINTEGRATING TAB 5MG PO PRN (08:09)
[2021-12-23 10:30] VITALS: BP 160/88
[2021-12-23 18:00] VITALS: BP 130/84
[2021-12-23] MEDS ORDERED: MIRTAZAPINE 15 MG TAB PO SCH (21:00)
[2021-12-24] MEDS ORDERED: ONDANSETRON 4MG ORAL DISINTEGRATING TAB PO PRN (05:05)
[2021-12-24] MEDS ORDERED: ATOR1TAB21 PO ×2 (08:01→23:45)
[2021-12-24] MEDS ORDERED: NICO21PAT TD (08:01)
[2021-12-24] MEDS ORDERED: LISI10TA22 PO ×2 (08:01→23:45)
[2021-12-24] MEDS ORDERED: PROP20TA PO (08:01)
[2021-12-24] MEDS ORDERED: MIRT-10 PO (08:01)
[2021-12-24] MEDS ORDERED: ONDA4TAB6 PO ×2 (08:01→23:45)
[2021-12-24] MEDS ORDERED: VENL75CA47 PO (08:01)
[2021-12-24] MEDS ORDERED: NARC1SPR NARES (08:02)
[2021-12-24] MEDS: NICOTINE 21MG/24HR 1 EA TRANSDERMAL TD SCH (09:16)
[2021-12-24] MEDS: VENLAFAXINE **XR** 75MG CAPSULE PO SCH ×2 (10:13→10:33)
[2021-12-24] MEDS: PROPRANOLOL 20 MG TAB PO SCH ×2 (10:14→10:33)
[2021-12-24] MEDS: ATORVASTATIN 20 MG TAB PO SCH ×2 (10:14→10:33)
[2021-12-24 10:33] VITALS: BP 166/84
[2021-12-24] MEDS ORDERED: NICO1DIS12 TD (23:45)
[2021-12-24] MEDS ORDERED: MIRT-62 PO (23:45)
[2021-12-24] MEDS ORDERED: VENL75CA2 PO (23:47)
[2021-12-24] MEDS ORDERED: PROP20TA72 PO (23:47)
== END 2021-12-24 12:10 | disposition home or self-care (01) | DRG 751 ==
LOC: M ED 19:15 → M ED INP 12-17 14:40 → M PSY 12-17 23:04
PROVIDERS: ADMIT Student in an Organized Health Care Education/Training Program; ATTEND Student in an Organized Health Care Education/Training Program
DX: F33.2 Major depressive disorder, recurrent severe without psychotic features (principal); F11.23 Opioid dependence with withdrawal; F17.200 Nicotine dependence, unspecified, uncomplicated; R45.851 Suicidal ideations; I10 Essential (primary) hypertension; E78.5 Hyperlipidemia, unspecified; Z91.51 Personal history of suicidal behavior; Z20.822 Contact with and (suspected) exposure to COVID-19

== ENCOUNTER 2021-12-24 19:31 | Inpatient (IN) | payer MEDICAID ==
[~2021-12-24] VITALS: Ht 157.5 cm; Wt 60.0 kg
[~2021-12-24 19:31] MED LIST changes: +LISI10TA22 PO; +MIRT-10 PO; +NARC1SPR NARES; +NICO21PAT TD; +ONDA4TAB6 PO; +PROP20TA PO; +VENL75CA47 PO
[2021-12-24] MEDS ORDERED: NICOTINE 21MG/24HR 1 EA TRANSDERMAL TD ONE (21:05)
[2021-12-24] MEDS ORDERED: HALOPERIDOL 5MG/ML VIAL (J1630 PER 1) IM ONE (22:00)
[2021-12-24] MEDS ORDERED: LORazepam 2 MG/ML VIAL IM ONE (22:00)
[2021-12-24] MEDS ORDERED: diphenhydrAMINE 50MG/ML VIAL (J1200) IM ONE (22:00)
[2021-12-24 22:04] LABS: RSV AMPLIFICATION NEGATIVE (NEGATIVE)
[2021-12-24 22:26] LABS: HEMATOCRIT 41.6 % (36.0-47.0); HEMOGLOBIN 14.6 g/dl (12.0-15.5); MEAN CORPUSCULAR HEMOGLOBIN 29.5 pg (27.0-33.0); MEAN CORPUSCULAR HGB CONC 35.1 g/dl (32.0-36.5); PLATELET COUNT, AUTOMATED 314 10^3/uL (150-450); RED BLOOD COUNT 4.95 10^6/uL (4.00-5.40); WHITE BLOOD COUNT 22.8 10^3/uL (4.0-10.0)
[2021-12-24 22:43] LABS: AMPHETAMINES LEVEL URINE NEGATIVE (NEGATIVE); BARBITURATES URINE NEGATIVE (NEGATIVE); BENZODIAZEPINES URINE NEGATIVE (NEGATIVE); CANNABINOIDS URINE NEGATIVE (NEGATIVE); COCAINE METABOLITE URINE NEGATIVE (NEGATIVE); METHADONE URINE NEGATIVE (NEGATIVE); OPIATES URINE NEGATIVE (NEGATIVE); PHENCYCLIDINE URINE NEGATIVE (NEGATIVE)
[2021-12-24 22:48] LABS: HCG, SERUM QUALITATIVE NEGATIVE (NEGATIVE)
[2021-12-24] MEDS ORDERED: LORazepam 2 MG/ML VIAL As Ordered ONE (22:53)
[2021-12-24 23:03] LABS: ACETAMINOPHEN LEVEL < 2.0 UG/ML (10.0-30.0); ALBUMIN 4.3 GM/DL (3.2-5.2); ALT/SGPT 16 U/L (12-78); BILIRUBIN,DIRECT 0.2 MG/DL (0.0-0.2); BILIRUBIN,TOTAL 0.7 MG/DL (0.2-1.0); BLOOD UREA NITROGEN 26 MG/DL (7-18); CALCIUM LEVEL 9.5 MG/DL (8.5-10.1); CARBON DIOXIDE LEVEL 24 MEQ/L (21-32); CHLORIDE LEVEL 105 MEQ/L (98-107); CREATININE FOR GFR 1.23 MG/DL (0.55-1.30); ETHYL ALCOHOL (ETHANOL) < 0.003 % (0.000-0.010); GLOMERULAR FILTRATION RATE 53.5 (>60); GLUCOSE, FASTING 140 MG/DL (70-100); POTASSIUM SERUM 3.9 MEQ/L (3.5-5.1); SALICYLATE LEVEL < 1.7 MG/DL (5.0-30.0); SODIUM LEVEL 139 MEQ/L (136-145); TOTAL PROTEIN 8.4 GM/DL (6.4-8.2)
[2021-12-24] MEDS ORDERED: MIRT-62 PO (23:45)
[2021-12-24] MEDS ORDERED: NICO1DIS12 TD (23:45)
[2021-12-24] MEDS ORDERED: ONDA4TAB6 PO (23:45)
[2021-12-24] MEDS ORDERED: LISI10TA22 PO (23:45)
[2021-12-24] MEDS ORDERED: ATOR1TAB21 PO (23:45)
[2021-12-24] MEDS ORDERED: VENL75CA2 PO (23:47)
[2021-12-24] MEDS ORDERED: PROP20TA72 PO (23:47)
[2021-12-24] MEDS ORDERED: HOME MED LIST COMPLETE! XX SCH (23:50)
[2021-12-25 07:49] LABS: BASO # 0.1 10^3/uL (0.0-0.2); BASO % 0.6 % (0.0-1.0); EOS # 0.1 10^3/uL (0.0-0.5); EOS % 0.5 % (0.0-3.0); LYMPH # 4.9 10^3/uL (1.5-5.0); LYMPH % 21.8 % (24.0-44.0); MONO # 1.3 10^3/uL (0.0-0.8); MONO % 5.9 % (2.0-8.0); NEUTROPHILS # 15.8 10^3/uL (1.5-8.5); NEUTROPHILS % 70.7 % (36.0-66.0)
[2021-12-25] MEDS: VENLAFAXINE **XR** 75MG CAPSULE PO SCH (11:18)
[2021-12-25] MEDS: PROPRANOLOL 20 MG TAB PO SCH ×2 (11:18→18:31)
[2021-12-25] MEDS: ATORVASTATIN 20 MG TAB PO SCH (11:18)
[2021-12-25] MEDS ORDERED: NICOTINE 21MG/24HR 1 EA TRANSDERMAL TD ONE (12:25)
[2021-12-25 12:56] LABS: HEMATOCRIT 39.8 % (36.0-47.0); HEMOGLOBIN 13.9 g/dl (12.0-15.5); MEAN CORPUSCULAR HGB CONC 34.9 g/dl (32.0-36.5); MEAN CORPUSCULAR VOLUME 85.8 fl (80.0-96.0); PLATELET COUNT, AUTOMATED 267 10^3/uL (150-450); RED BLOOD COUNT 4.64 10^6/uL (4.00-5.40); WHITE BLOOD COUNT 8.9 10^3/uL (4.0-10.0)
[2021-12-25 13:47] LABS: ATYPICAL LYMPH 2 % (0-5); EOSINOPHILS 3 % (0-3); LYMPHOCYTES 50 % (16-44); MONOCYTES 2 % (0-5); NEUTROPHILS 43 % (28-66); PLATELET ESTIMATE NORMAL (NORMAL)
[2021-12-25] MEDS ORDERED: MIRTAZAPINE 15 MG TAB PO SCH (21:00)
[2021-12-25] MEDS: PROPRANOLOL 10 MG TAB PO SCH (21:18)
[2021-12-26] MEDS: PROPRANOLOL 10 MG TAB PO SCH ×2 (08:42→15:31)
[2021-12-26] MEDS: ATORVASTATIN 20 MG TAB PO SCH (08:42)
[2021-12-26] MEDS: VENLAFAXINE **XR** 75MG CAPSULE PO SCH (08:42)
[2021-12-26] MEDS: NICOTINE 21MG/24HR 1 EA TRANSDERMAL TD SCH (10:31)
[2021-12-26] MEDS ORDERED: LORazepam 2 MG TAB PO ONE (15:25)
[2021-12-26] MEDS ORDERED: MAALOX 30 ML SUSP *UDC PO PRN (18:05)
[2021-12-26] MEDS ORDERED: ACETAMINOPHEN TAB 650MG DOSE (2X325MG) PO PRN (18:05)
[2021-12-26] MEDS ORDERED: MOM 30ML SUSPENSION UDC PO PRN (18:05)
[2021-12-26] MEDS ORDERED: hydrOXYzine 50 MG TAB PO ONE (21:10)
[2021-12-26] MEDS: PROPRANOLOL 20 MG TAB PO SCH (21:17)
[2021-12-26 22:48] VITALS: BP 129/95
[2021-12-26] MEDS: MIRTAZAPINE 15 MG TAB PO SCH (23:49)
[2021-12-26] MEDS: traZODone 50 MG TAB PO PRN (23:50)
[2021-12-27 07:01] VITALS: BP 153/95
[2021-12-27] MEDS: PROPRANOLOL 20 MG TAB PO SCH ×3 (08:10→20:38)
[2021-12-27] MEDS: VENLAFAXINE **XR** 75MG CAPSULE PO SCH (08:10)
[2021-12-27] MEDS: ATORVASTATIN 20 MG TAB PO SCH (08:11)
[2021-12-27] MEDS: NICOTINE 21MG/24HR 1 EA TRANSDERMAL TD SCH (08:12)
[2021-12-27 08:36] VITALS: BP 148/98
[2021-12-27] MEDS: LORazepam 1 MG TAB PO PRN ×2 (09:17→20:39)
[2021-12-27 16:00] VITALS: BP 135/88
[2021-12-27] MEDS ORDERED: LORazepam 1 MG TAB PO ONE (16:00)
[2021-12-27 17:13] VITALS: BP 135/92
[2021-12-27] MEDS ORDERED: cloNIDine 0.1MG TABLET PO ONE (17:35)
[2021-12-27] MEDS ORDERED: ALPRAZolam 0.5 MG TAB PO ONE (17:35)
[2021-12-27] MEDS: MIRTAZAPINE 15 MG TAB PO SCH (20:38)
[2021-12-27] MEDS: traZODone 50 MG TAB PO PRN (20:40)
[2021-12-28] MEDS: LORazepam 1 MG TAB PO PRN ×3 (06:01→22:12)
[2021-12-28 06:12] VITALS: BP 128/73
[2021-12-28] MEDS ORDERED: cloNIDine 0.1MG TABLET PO ONE (07:45)
[2021-12-28] MEDS ORDERED: OLANZapine ORAL DISINTEGRATING TAB 5MG PO ONE (07:45)
[2021-12-28] MEDS: NICOTINE 21MG/24HR 1 EA TRANSDERMAL TD SCH (07:46)
[2021-12-28] MEDS: PROPRANOLOL 20 MG TAB PO SCH ×3 (07:46→21:50)
[2021-12-28] MEDS: VENLAFAXINE **XR** 75MG CAPSULE PO SCH (07:46)
[2021-12-28] MEDS: ATORVASTATIN 20 MG TAB PO SCH (07:47)
[2021-12-28] MEDS ORDERED: NALOXONE 2MG/2ML SYRINGE (J2310 PER 1MG) IM STA (15:59)
[2021-12-28] MEDS ORDERED: NALOXONE 2MG/2ML SYRINGE (J2310 PER 1MG) ONE (16:00)
[2021-12-28] MEDS ORDERED: NALOXONE INJ 0.4MG/1ML VIAL (J2310 PER 1MG) IM STA (16:07)
[2021-12-28 18:24] VITALS: BP 114/74
[2021-12-28] MEDS: traZODone 50 MG TAB PO PRN (21:48)
[2021-12-28] MEDS: MIRTAZAPINE 15 MG TAB PO SCH (21:50)
[2021-12-29 06:23] VITALS: BP 117/65
[2021-12-29] MEDS: NICOTINE 21MG/24HR 1 EA TRANSDERMAL TD SCH (07:40)
[2021-12-29] MEDS: VENLAFAXINE **XR** 75MG CAPSULE PO SCH (07:41)
[2021-12-29] MEDS: LORazepam 1 MG TAB PO PRN ×3 (07:41→23:43)
[2021-12-29] MEDS: PROPRANOLOL 20 MG TAB PO SCH ×4 (07:42→23:42)
[2021-12-29] MEDS: ATORVASTATIN 20 MG TAB PO SCH (07:42)
[2021-12-29 18:40] VITALS: BP 135/95
[2021-12-29] MEDS ORDERED: OLANZapine ORAL DISINTEGRATING TAB 5MG PO STA (18:40)
[2021-12-29] MEDS ORDERED: LORazepam 1 MG TAB PO STA (18:40)
[2021-12-29] MEDS ORDERED: diphenhydrAMINE 50MG CAP PO ONE (20:45)
[2021-12-29] MEDS: MIRTAZAPINE 15 MG TAB PO SCH ×2 (21:00→23:42)
[2021-12-29] MEDS: traZODone 50 MG TAB PO PRN (23:44)
[2021-12-30 06:15] VITALS: BP 117/69
[2021-12-30] MEDS: VENLAFAXINE **XR** 75MG CAPSULE PO SCH (07:53)
[2021-12-30] MEDS: LORazepam 1 MG TAB PO PRN ×2 (07:53→16:00)
[2021-12-30] MEDS: ATORVASTATIN 20 MG TAB PO SCH (07:54)
[2021-12-30] MEDS: PROPRANOLOL 20 MG TAB PO SCH ×3 (07:54→21:04)
[2021-12-30] MEDS: NICOTINE 21MG/24HR 1 EA TRANSDERMAL TD SCH (09:41)
[2021-12-30] MEDS ORDERED: diphenhydrAMINE 50MG CAP PO ONE (11:25)
[2021-12-30] MEDS ORDERED: ACETAMINOPHEN TAB 650MG DOSE (2X325MG) PO ONE (11:45)
[2021-12-30 17:52] VITALS: BP 137/93
[2021-12-30] MEDS: MIRTAZAPINE 15 MG TAB PO SCH (21:01)
[2021-12-30] MEDS: traZODone 50 MG TAB PO PRN (21:01)
[2021-12-31] MEDS: LORazepam 1 MG TAB PO PRN ×2 (06:17→15:21)
[2021-12-31 06:45] VITALS: BP 106/79
[2021-12-31] MEDS: OLANZapine ORAL DISINTEGRATING TAB 5MG PO PRN ×2 (07:15→13:47)
[2021-12-31] MEDS: PROPRANOLOL 20 MG TAB PO SCH ×3 (08:22→22:00)
[2021-12-31] MEDS: ATORVASTATIN 20 MG TAB PO SCH (08:22)
[2021-12-31] MEDS: VENLAFAXINE **XR** 37.5 MG CAPSULE PO SCH (08:23)
[2021-12-31] MEDS: NICOTINE 21MG/24HR 1 EA TRANSDERMAL TD SCH (08:24)
[2021-12-31 18:00] VITALS: BP 139/85
[2021-12-31] MEDS: MIRTAZAPINE 15 MG TAB PO SCH (22:00)
[2021-12-31] MEDS: traZODone 50 MG TAB PO PRN (22:00)
[2022-01-01] MEDS: LORazepam 1 MG TAB PO PRN (03:05)
[2022-01-01 06:55] VITALS: BP 123/81
[2022-01-01] MEDS: ATORVASTATIN 20 MG TAB PO SCH (08:11)
[2022-01-01] MEDS: VENLAFAXINE **XR** 37.5 MG CAPSULE PO SCH (08:11)
[2022-01-01 08:12] VITALS: BP 123/81
[2022-01-01] MEDS: PROPRANOLOL 20 MG TAB PO SCH (08:12)
[2022-01-01] MEDS: NICOTINE 21MG/24HR 1 EA TRANSDERMAL TD SCH (08:13)
[2022-01-01] MEDS ORDERED: MIRT-10 PO (08:37)
[2022-01-01] MEDS ORDERED: OLAN5ZYD PO (08:37)
[2022-01-01] MEDS ORDERED: VENL37.52 PO (08:37)
[2022-01-01] MEDS ORDERED: TRAZ-252 PO (08:37)
[2022-01-01] MEDS ORDERED: VENL75CA2 PO (08:37)
[2022-01-01] MEDS ORDERED: LORazepam 0.5 MG TAB PO ONE (09:00)
[2022-01-02] MEDS ORDERED: OLAN5ZYD PO (06:36)
[2022-01-02] MEDS ORDERED: VENL37.598 PO (06:36)
[2022-01-02] MEDS ORDERED: TRAZ-186 PO (06:36)
[2022-01-02] MEDS ORDERED: MIRT-62 PO (06:36)
[2022-01-02] MEDS ORDERED: VENL75CA47 PO (06:36)
== END 2022-01-01 09:47 | DRG 751 ==
LOC: M ED 19:31 → M ED INP 12-26 18:02 → M PSY 12-26 22:50
PROVIDERS: ADMIT Psychiatry & Neurology Psychiatry; ATTEND Psychiatry & Neurology Psychiatry
DX: F33.2 Major depressive disorder, recurrent severe without psychotic features (principal); F11.23 Opioid dependence with withdrawal; F11.24 Opioid dependence with opioid-induced mood disorder; F17.200 Nicotine dependence, unspecified, uncomplicated; I10 Essential (primary) hypertension; E78.5 Hyperlipidemia, unspecified; Z91.51 Personal history of suicidal behavior; Z20.822 Contact with and (suspected) exposure to COVID-19; R45.850 Homicidal ideations; Z59.00 Homelessness unspecified; Z79.899 Other long term (current) drug therapy; R00.0 Tachycardia, unspecified

== ENCOUNTER 2022-01-02 04:46 | Inpatient (IN) | payer MEDICAID ==
[~2022-01-02] VITALS: Ht 154.9 cm; Wt 64.4 kg
[~2022-01-02 04:46] MED LIST changes: +MIRT-62 PO; +NICO1DIS12 TD; +OLAN5ZYD PO; +PROP20TA72 PO; +TRAZ-252 PO; +VENL37.52 PO; +VENL75CA2 PO
[2022-01-02 05:25] LABS: HEMATOCRIT 36.1 % (36.0-47.0); HEMOGLOBIN 12.5 g/dl (12.0-15.5); MEAN CORPUSCULAR HEMOGLOBIN 30.1 pg (27.0-33.0); MEAN CORPUSCULAR HGB CONC 34.6 g/dl (32.0-36.5); PLATELET COUNT, AUTOMATED 245 10^3/uL (150-450); RED BLOOD COUNT 4.15 10^6/uL (4.00-5.40); WHITE BLOOD COUNT 14.5 10^3/uL (4.0-10.0)
[2022-01-02 05:54] LABS: RSV AMPLIFICATION NEGATIVE (NEGATIVE)
[2022-01-02 06:03] LABS: HCG, SERUM QUALITATIVE NEGATIVE (NEGATIVE)
[2022-01-02 06:04] LABS: AMPHETAMINES LEVEL URINE POSITIVE (NEGATIVE); BARBITURATES URINE NEGATIVE (NEGATIVE); BENZODIAZEPINES URINE NEGATIVE (NEGATIVE); CANNABINOIDS URINE NEGATIVE (NEGATIVE); COCAINE METABOLITE URINE POSITIVE (NEGATIVE); METHADONE URINE NEGATIVE (NEGATIVE); OPIATES URINE NEGATIVE (NEGATIVE); PHENCYCLIDINE URINE NEGATIVE (NEGATIVE)
[2022-01-02] MEDS ORDERED: ACETAMINOPHEN TAB 650MG DOSE (2X325MG) PO ONE ×2 (06:05→18:00)
[2022-01-02] MEDS ORDERED: OLAN5ZYD PO (06:36)
[2022-01-02] MEDS ORDERED: VENL37.598 PO (06:36)
[2022-01-02] MEDS ORDERED: VENL75CA47 PO (06:36)
[2022-01-02] MEDS ORDERED: MIRT-62 PO (06:36)
[2022-01-02] MEDS ORDERED: TRAZ-186 PO (06:36)
[2022-01-02] MEDS ORDERED: HOME MED LIST COMPLETE! XX SCH (06:40)
[2022-01-02 06:53] LABS: ACETAMINOPHEN LEVEL < 2.0 UG/ML (10.0-30.0); ALBUMIN 3.5 GM/DL (3.2-5.2); ALT/SGPT 39 U/L (12-78); BILIRUBIN,DIRECT < 0.1 MG/DL (0.0-0.2); BILIRUBIN,TOTAL 0.4 MG/DL (0.2-1.0); BLOOD UREA NITROGEN 16 MG/DL (7-18); CALCIUM LEVEL 8.8 MG/DL (8.5-10.1); CARBON DIOXIDE LEVEL 24 MEQ/L (21-32); CHLORIDE LEVEL 104 MEQ/L (98-107); CREATININE FOR GFR 0.79 MG/DL (0.55-1.30); ETHYL ALCOHOL (ETHANOL) < 0.003 % (0.000-0.010); GLOMERULAR FILTRATION RATE > 60.0 (>60); GLUCOSE, FASTING 77 MG/DL (70-100); POTASSIUM SERUM 3.9 MEQ/L (3.5-5.1); SALICYLATE LEVEL < 1.7 MG/DL (5.0-30.0); SODIUM LEVEL 137 MEQ/L (136-145); TOTAL PROTEIN 7.2 GM/DL (6.4-8.2)
[2022-01-02] MEDS: NICOTINE 21MG/24HR 1 EA TRANSDERMAL TD SCH (10:16)
[2022-01-02] MEDS: ATORVASTATIN 20 MG TAB PO SCH (10:17)
[2022-01-02] MEDS: VENLAFAXINE **XR** 37.5 MG CAPSULE PO SCH (10:17)
[2022-01-02] MEDS: VENLAFAXINE **XR** 75MG CAPSULE PO SCH (10:18)
[2022-01-02] MEDS: PROPRANOLOL 20 MG TAB PO SCH ×2 (10:18→17:15)
[2022-01-02] MEDS ORDERED: OLANZapine 5 MG TAB PO ONE (17:10)
[2022-01-02] MEDS ORDERED: MIRTAZAPINE 15 MG TAB PO SCH (21:00)
[2022-01-03] MEDS: PROPRANOLOL 20 MG TAB PO SCH ×3 (01:54→20:48)
[2022-01-03] MEDS: VENLAFAXINE **XR** 37.5 MG CAPSULE PO SCH (09:00)
[2022-01-03] MEDS: VENLAFAXINE **XR** 75MG CAPSULE PO SCH (09:00)
[2022-01-03] MEDS: ATORVASTATIN 20 MG TAB PO SCH (09:00)
[2022-01-03] MEDS: NICOTINE 21MG/24HR 1 EA TRANSDERMAL TD SCH (09:00)
[2022-01-03] MEDS ORDERED: ONDANSETRON 4MG ORAL DISINTEGRATING TAB PO PRN (15:25)
[2022-01-03] MEDS ORDERED: ACETAMINOPHEN TAB 650MG DOSE (2X325MG) PO PRN (15:25)
[2022-01-03] MEDS ORDERED: MOM 30ML SUSPENSION UDC PO PRN (15:25)
[2022-01-03] MEDS ORDERED: MAALOX 30 ML SUSP *UDC PO PRN (15:25)
[2022-01-03] MEDS: OLANZapine ORAL DISINTEGRATING TAB 5MG PO PRN (20:47)
[2022-01-03] MEDS: traZODone 50 MG TAB PO PRN (21:07)
[2022-01-03] MEDS: MIRTAZAPINE 15 MG TAB PO SCH (21:07)
[2022-01-04 06:42] VITALS: BP 133/82
[2022-01-04] MEDS: PROPRANOLOL 20 MG TAB PO SCH ×3 (09:00→22:06)
[2022-01-04] MEDS ORDERED: VENLAFAXINE **XR** 37.5 MG CAPSULE PO SCH (09:00)
[2022-01-04] MEDS: ATORVASTATIN 20 MG TAB PO SCH (09:00)
[2022-01-04] MEDS: VENLAFAXINE **XR** 75MG CAPSULE PO SCH (09:00)
[2022-01-04] MEDS ORDERED: VENLAFAXINE **XR** 75MG CAPSULE PO SCH (09:00)
[2022-01-04 18:00] VITALS: BP 150/80
[2022-01-04] MEDS: MIRTAZAPINE 15 MG TAB PO SCH (22:06)
[2022-01-05 06:41] VITALS: BP 160/97
[2022-01-05] MEDS: ATORVASTATIN 20 MG TAB PO SCH (08:54)
[2022-01-05] MEDS: VENLAFAXINE **XR** 75MG CAPSULE PO SCH (08:55)
[2022-01-05] MEDS: NICOTINE 21MG/24HR 1 EA TRANSDERMAL TD PRN (08:55)
[2022-01-05] MEDS: PROPRANOLOL 20 MG TAB PO SCH ×3 (08:55→20:04)
[2022-01-05] MEDS: OLANZapine ORAL DISINTEGRATING TAB 5MG PO PRN ×2 (09:09→19:36)
[2022-01-05] MEDS ORDERED: OLANZapine ORAL DISINTEGRATING TAB 5MG PO STA (10:57)
[2022-01-05] MEDS: busPIRone 10 MG TAB PO SCH ×2 (13:59→20:04)
[2022-01-05 18:00] VITALS: BP 128/78
[2022-01-05] MEDS: traZODone 50 MG TAB PO PRN (20:04)
[2022-01-05] MEDS: MIRTAZAPINE 15 MG TAB PO SCH (20:04)
[2022-01-06] MEDS: OLANZapine ORAL DISINTEGRATING TAB 5MG PO PRN ×2 (06:20→13:05)
[2022-01-06 07:03] VITALS: BP 149/87
[2022-01-06] MEDS: ATORVASTATIN 20 MG TAB PO SCH (07:51)
[2022-01-06] MEDS: busPIRone 10 MG TAB PO SCH ×2 (07:51→21:52)
[2022-01-06] MEDS: VENLAFAXINE **XR** 75MG CAPSULE PO SCH (07:51)
[2022-01-06] MEDS: PROPRANOLOL 20 MG TAB PO SCH ×3 (07:51→21:53)
[2022-01-06] MEDS: NICOTINE 21MG/24HR 1 EA TRANSDERMAL TD PRN (07:51)
[2022-01-06] MEDS: NALTREXONE 50 MG TAB PO SCH (11:47)
[2022-01-06 16:14] VITALS: BP 136/94
[2022-01-06] MEDS: MIRTAZAPINE 15 MG TAB PO SCH (21:00)
[2022-01-06] MEDS: traZODone 50 MG TAB PO PRN (21:53)
[2022-01-07 06:29] VITALS: BP 159/83
[2022-01-07] MEDS: busPIRone 10 MG TAB PO SCH (07:39)
[2022-01-07] MEDS: VENLAFAXINE **XR** 75MG CAPSULE PO SCH (07:39)
[2022-01-07] MEDS: NICOTINE 21MG/24HR 1 EA TRANSDERMAL TD PRN (07:39)
[2022-01-07] MEDS: NALTREXONE 50 MG TAB PO SCH (07:39)
[2022-01-07 07:40] VITALS: BP 159/83
[2022-01-07] MEDS: PROPRANOLOL 20 MG TAB PO SCH (07:40)
[2022-01-07] MEDS: ATORVASTATIN 20 MG TAB PO SCH (07:40)
[2022-01-07] MEDS ORDERED: NALT50TA4 PO (09:31)
[2022-01-07] MEDS ORDERED: PROP20TA72 PO (09:31)
[2022-01-07] MEDS ORDERED: VENL150C43 PO (09:31)
[2022-01-07] MEDS ORDERED: BUSP10TA PO (09:31)
[2022-01-07] MEDS ORDERED: NARC1SPR NARES (09:31)
[2022-01-07] MEDS ORDERED: TRAZ-186 PO (09:31)
== END 2022-01-07 12:25 | disposition home or self-care (01) | DRG 756 ==
LOC: M ED 04:46 → EDBD 04:46 → M ED INP 01-03 15:25 → M PSY 01-03 18:00
PROVIDERS: ADMIT Psychiatry & Neurology Psychiatry; ATTEND Student in an Organized Health Care Education/Training Program
DX: F41.8 Other specified anxiety disorders (principal); F11.20 Opioid dependence, uncomplicated; F15.14 Other stimulant abuse with stimulant-induced mood disorder; F40.10 Social phobia, unspecified; I10 Essential (primary) hypertension; F14.10 Cocaine abuse, uncomplicated; F60.89 Other specific personality disorders; D72.829 Elevated white blood cell count, unspecified; F17.200 Nicotine dependence, unspecified, uncomplicated; Z91.51 Personal history of suicidal behavior; Z79.899 Other long term (current) drug therapy